=== PATIENT | male | born 1960 | race Caucasian/White ===

== ENCOUNTER → 2025-09-13 | Outpatient (CLI) | payer BC, SELFPAY ==
[2025-09-13 14:23] LABS: Hematocrit 48.0 % (40-54); Hemoglobin 16.8 g/dL (13.0-16.5); Immature Granulocytes Count 0.020 X10^3/uL (0.0-0.0); Mean Corp Hgb Conc 35.0 g/dL (32-36); Mean Corpuscular Volume 87.1 fL (80-94); Mean Platelet Vol. 8.8 fl (6.2-12.0); NRBC Flagged by Analyzer 0 % (0-5); Platelet Count 247 K/mm3 (150-450); RBC Distribution Width CV 12.7 % (11.6-14.6); RBC Distribution Width SD 40.1 fl (35.1-43.9); Red Blood Count 5.51 M/mm3 (4.6-6.2); White Blood Count 6.8 K/mm3 (4.4-11.0)
[2025-09-13 15:15] LABS: AST(SGOT) 15 U/L (<=37); Alanine Aminotransfer ALT/SGPT 16 U/L (<=46); Albumin, Serum 4.7 g/dL (3.4-4.8); Alkaline Phosphatase 83 U/L (40-129); Anion Gap 12 (5-15); BUN 13 mg/dL (4-19); BUN/Creat Ratio 14.7 RATIO (10-20); Calcium,Total 10.0 mg/dL (7.6-11.0); Carbon Dioxide 26.3 mmol/L (21.0-32.0); Chloride 101 mmol/L (98-108); Cholesterol 199 mg/dL (<=200); Globulin 2.5 g/dL (2.2-4.2); Glucose 103 mg/dL (70-99); Low Density Lipoprotein Calc. 121 mg/dL; Potassium 3.9 mmol/L (3.3-5.1); Triglycerides 109 mg/dL; Very Low Density Lipoprotein 22 mg/dL (5-40); cholesterol:hdl ratio screen 3.40
[2025-09-13 15:29] LABS: Free T3 3.5 pg/mL (2.18-3.98); PSA,Total- Diagnostic 1.95 ng/mL (0.00-4.00); Vitamin B12 674 pg/mL (180-914); Vitamin D,25 Hydroxy 51.6 ng/mL (30-100)
[2025-09-19 12:08] LABS: PROLACTIN 8.4 ng/mL (3.6-25.2); Testosterone, % Free 2.77 % (1.50-4.20); Testosterone, Free 9.78 ng/dL (5.00-21.00)
== END | disposition home or self-care (01) ==
LOC: LAB 13:25
DX: Z00.00 Encounter for general adult medical examination without abnormal findings (principal); R68.82 Decreased libido; E07.9 Disorder of thyroid, unspecified; R53.83 Other fatigue; Z13.21 Encounter for screening for nutritional disorder
CPT/HCPCS: 36415; 80053; 80061; 82306; 82607; 82670; 83036; 84146; 84153; 84270; 84402; 84403; 84443; 84481; 85025; 86376